=== PATIENT | female | born 1990 | race Caucasian/White ===

== ENCOUNTER 2017-07-04 02:13 | Emergency (ER) | payer SELFPAY ==
[~2017-07-04] VITALS: Ht 172.7 cm; Wt 111.0 kg
[~2017-07-04 02:13] MED LIST: LEXAPRO10 MG PO; PEN-VEE K,VEET500 MG PO; PERCOCET 5/31 TABLET PO; ULTRAM50 MG PO; XANAX2 MG PO
[2017-07-04 02:19] VITALS: BP 118/67
[2017-07-04 02:54] LABS: HEMATOCRIT 38.6 % (36.0-46.0); HEMOGLOBIN 13.2 G/DL (11.9-15.5); MCH 30.4 PG (29.0-34.0); MCHC 34.2 G/DL (30.0-36.0); MCV 88.9 FL (83-99); PLATELET COUNT 320 K/uL (156-360); RBC DIS.WIDTH-CV 14.3 % (11.8-14.6); RBC DIS.WIDTH-SD 45.9 % (39-53); RED BLOOD COUNT 4.34 M/uL (3.80-5.20); WHITE BLOOD COUNT 12.6 K/uL (4.1-10.2)
[2017-07-04 03:05] LABS: CHLORIDE 108 mEq/L (99-109); POTASSIUM 4.2 mEq/L (3.7-5.4); SODIUM 141 mEq/L (136-147)
[2017-07-04 03:07] LABS: GLUCOSE 91 mg/dL (70-99)
[2017-07-04 03:11] LABS: CREATININE 0.8 mg/dL (0.6-1.3); GFR ESTIMATE (CALCULATED) > 59 mL/min/
[2017-07-04 03:12] LABS: UREA NITROGEN (BUN) 17 mg/dL (9-23)
== END 2017-07-04 03:15 | disposition left against medical advice (07) ==
LOC: EME 02:13
DX: R06.02 Shortness of breath (principal); Z53.21 Procedure and treatment not carried out due to patient leaving prior to being seen by health care provider
CPT/HCPCS: 71046; 80048; 85027

== ENCOUNTER 2017-12-10 09:43 | Emergency (ER) | payer OTHER ==
[~2017-12-10] VITALS: Ht 172.7 cm; Wt 108.4 kg
[2017-12-10 11:20] LABS: BASOPHIL (%) 0.4 % (0-1); EOSINOPHIL COUNT 0.1 K/uL (0-0.3); HEMATOCRIT 36.4 % (36.0-46.0); HEMOGLOBIN 12.3 G/DL (11.9-15.5); IMMATURE GRANULOCYTE (%) 0.2 % (0.0-0.7); LYMPHOCYTE (%) 15.4 % (15-42); LYMPHOCYTE COUNT 1.6 K/uL (1.0-2.8); MCH 31.1 PG (29.0-34.0); MCHC 33.8 G/DL (30.0-36.0); MCV 92.2 FL (83-99); MONOCYTE (%) 11.7 % (3-12); MONOCYTE COUNT 1.2 K/uL (0-0.8); NEUTROPHIL (%) 71.3 % (45-76); NEUTROPHIL COUNT 7.5 K/uL (1.8-6.4); PLATELET COUNT 259 K/uL (156-360); RBC DIS.WIDTH-CV 13.5 % (11.8-14.6); RBC DIS.WIDTH-SD 45.5 % (39-53); RED BLOOD COUNT 3.95 M/uL (3.80-5.20); WHITE BLOOD COUNT 10.5 K/uL (4.1-10.2)
[2017-12-10 11:36] LABS: ALBUMIN 4.1 g/dL (3.2-4.8); CHLORIDE 111 mEq/L (99-109); POTASSIUM 4.4 mEq/L (3.7-5.4); SODIUM 138 mEq/L (136-147)
[2017-12-10 11:38] LABS: GLUCOSE 82 mg/dL (70-99)
[2017-12-10 11:39] LABS: TOTAL PROTEIN 7.6 g/dL (6.4-8.3)
[2017-12-10 11:40] LABS: TOTAL BILIRUBIN 0.3 mg/dL (0.0-1.0)
[2017-12-10 11:42] LABS: ALKALINE PHOSPHATASE 66 IU/L (3-129); CREATININE 0.8 mg/dL (0.6-1.3); GFR ESTIMATE (CALCULATED) > 59 mL/min/
[2017-12-10 11:43] LABS: UREA NITROGEN (BUN) 9 mg/dL (9-23)
[2017-12-10 11:44] LABS: AST (GOT) 17 IU/L (2-34)
[2017-12-10 11:45] LABS: ALT (GPT) 19 IU/L (3-49)
[2017-12-10 11:51] LABS: QUANTITATIVE HCG 24.5 MIU/ML
[2017-12-10] MEDS ORDERED: AUGMENTIN875 MG PO (12:27)
[2017-12-10 13:14] VITALS: BP 110/71
== END 2017-12-10 13:15 | disposition home or self-care (01) ==
LOC: EME 09:43
PROVIDERS: Emergency Medicine
DX: O99.89 Other specified diseases and conditions complicating pregnancy, childbirth and the puerperium (principal); K04.7 Periapical abscess without sinus; L03.211 Cellulitis of face; K02.9 Dental caries, unspecified; O99.331 Smoking (tobacco) complicating pregnancy, first trimester; F17.200 Nicotine dependence, unspecified, uncomplicated
CPT/HCPCS: 80053; 84702; 85025; 99281; 99285

== ENCOUNTER 2017-12-13 16:51 | Emergency (ER) | payer OTHER ==
[~2017-12-13] VITALS: Ht 172.7 cm; Wt 108.9 kg
[~2017-12-13 16:51] MED LIST changes: +AUGMENTIN875 MG PO
[2017-12-13 17:18] LABS: HEMATOCRIT 35.4 % (36.0-46.0); HEMOGLOBIN 12.1 G/DL (11.9-15.5); MCH 30.9 PG (29.0-34.0); MCHC 34.2 G/DL (30.0-36.0); MCV 90.5 FL (83-99); PLATELET COUNT 331 K/uL (156-360); RBC DIS.WIDTH-CV 13.1 % (11.8-14.6); RBC DIS.WIDTH-SD 43.4 % (39-53); RED BLOOD COUNT 3.91 M/uL (3.80-5.20)
[2017-12-13 17:54] LABS: APPEARANCE SL.HAZY ((CLEAR)); BILIRUBIN NEGATIVE; BLOOD MODERATE; COLOR YELLOW ((YELLOW)); GLUCOSE (STRIP) NEGATIVE; KETONES 5; LEUKOCYTES NEGATIVE; NITRITE NEGATIVE; PROTEIN (STRIP) NEGATIVE; SPECIFIC GRAVITY 1.033 (1.000-1.030)
[2017-12-13 18:04] LABS: BACTERIA RARE /HPF; CALCIUM OXALATE CRYSTALS 3+ /HPF; EPITHELIAL CELLS 2+ /HPF; MUCUS TRACE /LPF; RED BLOOD CELLS 0-5 /HPF (0-5); UCUL ADDED? NO; WHITE BLOOD CELLS 0-5 /HPF (0-5)
[2017-12-13] MEDS ORDERED: PRENATAL VITAM1 EAC7 PO (21:31)
[2017-12-13] MEDS ORDERED: ZOFRAN ODT8 MG PO (21:31)
[2017-12-13 21:45] VITALS: BP 119/65
[2017-12-13 21:56] LABS: BENZODIAZEPINES, URINE SCREEN Negative (200 ng/mL)
== END 2017-12-13 21:45 | disposition home or self-care (01) ==
LOC: EME 16:51
DX: O26.851 Spotting complicating pregnancy, first trimester (principal); O36.0110 Maternal care for anti-D [Rh] antibodies, first trimester, not applicable or unspecified; O99.331 Smoking (tobacco) complicating pregnancy, first trimester; F17.200 Nicotine dependence, unspecified, uncomplicated; Z3A.01 Less than 8 weeks gestation of pregnancy
CPT/HCPCS: 80306 90; 81003; 84702; 85027; 86850; 86900; 86901; 99281; 99285; J2790